=== PATIENT | female | born 1960 | race Caucasian/White ===

== ENCOUNTER 2023-11-08 08:30 | Emergency (ER) | payer MEDICARE, SELFPAY ==
[2023-11-08 08:30] VITALS: BMI 38.9
[2023-11-08 08:38] VITALS: BP 152/90
--- NOTE | 2023-11-08 10:03 | ED.GENMED ---
History of Present Illness
General
Chief Complaint: Breathing Problem
Source: patient
Exam Limitations: none
Time Seen by Provider: 11/08/23 09:33
Travel History
Have you had any contact with someone who has COVID-19?: Yes
Comment: 2 weeks ago
Do you have any symptoms of coronavirus? Fever > 100 degrees, chills, cough, shortness of breath, sore throat, loss of taste or smell, muscle aches, or headache?: No
History of Present Illness
History of Present Illness:
63-year-old female presents with fatigue, occasional shortness of breath. She had a knee replacement about 4 weeks ago. She has a history of aortic valve replacement and is on Coumadin. She has been having difficulty controlling her INR. It has
been reading high lately and they have been decreasing the doses of her Coumadin. She was told to come and get a recheck of her INR as the value she has been going off of was a home test kit. No fever. She did recently get over COVID. No
vomiting. No chest pain.
Past History
Past History
ED Past Medical History: Negative HTN
Social History
Tobacco: Non-smoker
Alcohol: Occasional
Drug: None
Personal: Other
Living: with family
Employment: Employed
Family History
Family History: Other
Phy Exam
Physical Exam
Physical Exam:
General: Well-appearing female no acute respiratory distress
HEENT: Normocephalic atraumatic
Heart: Regular rate and rhythm no murmurs
Lungs: Clear to auscultation bilaterally no wheezing
Abdomen: Soft nontender nondistended no guarding or rebound normal bowel sounds
Extremities: No cyanosis or edema
Skin: Warm no rash
Scores
Heart Failure Risk
Heart Failure Risk Score: Not Applicable
Course
Orders/Labs/Results
Orders:
Orders
11/08/23 08:42
Electrocardiogram (*1) Urgent
Reason for Study: Shortness of Breath
11/08/23 08:43
EKG- Treatment ONCE
11/08/23 10:29
Complete Blood Count/With Diff Urgent
Comprehensive Metabolic Panel Urgent
Prothrombin Time Urgent
11/08/23 10:54
CR Chest - 2 Views Urgent
Comment:
Reason For Exam: sob
Abnormal Lab Results
11/08/23
10:29
RBC 4.11 L 10^6/uL
(4.20-5.40)
Hct 36.1 L %
(37.0-47.0)
Monocytes % 10.2 H %
(1.7-9.3)
Eosinophils % 7.0 H %
(0-6)
PT 43.9 H Sec
(11.4-14.6)
Glucose 111 H mg/dl
(70-99)
AST 49 H U/L
(14-36)
Total Protein 8.8 H g/dl
(6.3-8.2)
11/08/23 10:29
11/08/23 10:29
Vital Signs
Initial and Last Documented VS:
Initial Vital Signs
Temp Pulse Resp BP Pulse Ox
98.4 F 84 16 152/90 98
11/08/23 08:38 11/08/23 08:38 11/08/23 08:38 11/08/23 08:38 11/08/23 08:38
Last Documented Vital Signs
Temp Pulse Resp BP Pulse Ox
98.4 F 87 16 162/87 98
11/08/23 08:38 11/08/23 10:35 11/08/23 10:35 11/08/23 10:35 11/08/23 10:35
MDM/Problems Addressed
Differential Diagnosis Includes:
Vague symptoms of fatigue and loose stool and shortness of breath. Recent COVID infection. Question INR. Will check labs
*Critical Care Note
Total Time (30-74mins, 75-104mins- exclusive of procedures): Not Applicable
Update Note
Update Note:
INR 4.63. Chest x-ray without acute finding. Stable. Patient reassured. Recommend she follow-up with her cardiology team for further recommendations regarding her Coumadin dosing
ED Attending Note
-
Portions of this chart may have been created with voice recognition software.� Occasional wrong word or��sound alike� substitutions may have occurred due to the inherent limitations of voice recognition software.
Discharge Plan
Departure
Patient Disposition: Home (Routine Discharge)
Date of Disposition: 11/08/23
Time of Disposition: 12:05
Patient with high blood pressure during this ER visit?: No
Discharge Problem:
Supratherapeutic INR
Instructions: Shortness of Breath (Dyspnea) (DC)
Prescriptions:
No Action
aspirin 81 MG tablet,delayed release (DR/EC)
81 mg PO HS
metoprolol tartrate 25 MG tablet
25 mg PO BID Qty: 0 0RF
amoxicillin 500 mg Capsule
2,000 mg PO PRN PRN (Reason: 30-60min before dental procedure)
methadone 10 mg Tablet
15 mg PO BID
dextroamphetamine-amphetamine [Adderall] 30 mg Tablet
30 mg PO DAILY
losartan 25 mg Tablet
50 mg PO DAILY
duloxetine 20 mg Capsule,Delayed Release(Dr/Ec)
20 mg PO DAILY
pregabalin 75 mg Capsule
75 mg PO BID
Gammaplex (with sorbitol) 5 % Solution
1 ml IV DIRECTED
Praluent Pen 150 mg/mL Pen Injector
150 mg SC Q14D
ezetimibe [Zetia] 10 mg Tablet
10 mg PO DAILY
Vraylar 1.5 mg Capsule
1.5 mg PO DAILY
mupirocin 2 % ointment
1 applic topical BID Qty: 1 0RF
Patient Comments:
started traetment 10/10/23 and was taking BID last took at home 10/13/23 in am
warfarin 5 mg Tablet
2.5 - 5 mg PO HS Qty: 0 0RF
Patient Comments:
pt tests self 2x week
Rx Instructions:
take 5 mg nightly, then as advised after INR -per cardiology
sennosides [Senokot] 8.6 mg tablet
17.2 mg PO BID Qty: 2 0RF
prednisone 10 mg tablet
40 mg PO TAPER Qty: 20 0RF
Rx Instructions:
4 TABS X 2 DAYS, 3 TABS X 2 DAYS, 2 TABS X 2 DAYS, 1 TAB X 2 DAYS, THEN STOP
magnesium hydroxide [Milk of Magnesia] 400 mg/5 mL suspension
30 ml PO HS PRN (Reason: Constipation) Qty: 1 0RF
docusate sodium [Colace] 100 mg capsule
100 mg PO BID Qty: 1 0RF
diazepam [Valium] 5 mg tablet
5 mg PO BID Qty: 15 0RF
Rx Instructions:
bid x 5 days, then nightly, then stop
hydrocodone-acetaminophen 7.5-325 mg tablet
1 tab PO Q6HPRN PRN (Reason: moderate-severe pain) Qty: 30 0RF
Rx Instructions:
Dx TKA
Ongoing therapy
cefadroxil 500 mg capsule
500 mg PO BID Qty: 14 0RF
Rx Instructions:
*Take w/ food
*Take w/ probiotic
*POST-OP USE
Saccharomyces boulardii [Florastor] 250 mg capsule
250 mg PO BID Qty: 1 0RF
Referrals:
Mo Schilling MD [Family Provider] -
Activity Restrictions/Additional Instructions:
Please follow-up with your cardiology team for further recommendation regarding your Coumadin doses. Return if worse otherwise
Interventions
Interventions:
*Risk Screen - Suicide Last Done: 11/08/23 10:34
*General Assessment Last Done: 11/08/23 10:34
*Neglect/Abuse Screening Last Done: 11/08/23 10:34
ED- Fall Risk Assessment Last Done: 11/08/23 10:34
*ED COVID-19 Vaccine History Last Done: 11/08/23 08:38
ED- Cardiac Assessment Last Done: 11/08/23 10:34
ED- Pulmonary Assessment Last Done: 11/08/23 10:34
[2023-11-08 10:35] VITALS: BP 162/87
[2023-11-08 10:40] LABS: % Basophils 1.1 % (0-2); % Immature Granulocytes 0.2 % (0-0.5); % Lymphocytes 30.1 % (20.5-51.1); % Monocytes 10.2 % (1.7-9.3); % Neutrophils 51.4 % (42.2-75.2); Absolute Basophils 0.1 10^3/uL (0-0.2); Absolute Eosinophils 0.4 10^3/uL (0-0.7); Absolute Lymphocytes 1.7 10^3/uL (1.2-3.4); Absolute Monocytes 0.6 10^3/uL (0.1-0.6); Absolute Neutrophils 2.9 10^3/uL (1.4-6.5); Hematocrit 36.1 % (37.0-47.0); Hemoglobin 12.3 g/dL (12.0-16.0); Mean Corp Hgb Conc. 34.1 g/dL (33.0-37.0); Mean Corpuscular Hgb 29.9 pg (27.0-31.0); Mean Corpuscular Volume 87.8 fL (81.0-99.0); Mean Platelet Volume 9.4 fL (7.4-10.4); Nucleated Red Blood Cells % 0 %; Platelet Count 368 10^3/uL (130-400); Red Blood Cell Count 4.11 10^6/uL (4.20-5.40); Red Cell Dist. Width 13.5 % (11.5-14.5); White Blood Cell Count 5.7 10^3/uL (4.8-10.8)
[2023-11-08 10:49] LABS: INR 4.63; PT 43.9 Sec (11.4-14.6)
[2023-11-08 11:00] LABS: ALT (SGPT) 34 U/L (0-35); AST (SGOT) 49 U/L (14-36); Albumin 3.8 g/dl (3.5-5.0); Alkaline Phosphatase 96 U/L (38-126); Blood Urea Nitrogen 15 mg/dl (7-17); Calcium 9.1 mg/dl (8.4-10.2); Carbon Dioxide 27 mmol/L (22-30); Chloride 101 mmol/L (98-107); Estimated Creatinine Clearance 91 ml/min; Glucose 111 mg/dl (70-99); Potassium 3.8 mmol/L (3.5-5.1); Sodium 138 mmol/L (135-145); Total Protein 8.8 g/dl (6.3-8.2); eGFR > 60.00
== END 2023-11-08 12:47 | disposition home or self-care (01) ==
LOC: EMR 08:30
PROVIDERS: Physician Assistant; EMERGENCY PHYSICIAN Emergency Medicine; FAMILY PHYSICIAN Family Medicine
DX: R79.1 Abnormal coagulation profile (principal); Z79.01 Long term (current) use of anticoagulants; Z95.2 Presence of prosthetic heart valve
CPT/HCPCS: 99283; 71046; 80053; 85025; 85610; 93005

== ENCOUNTER 2024-04-19 11:59 | Day surgery (SDC) | payer MEDICARE, SELFPAY ==
--- NOTE | 2024-01-07 09:15 | CM ---
Addendum entered by Dee Dee Chawla 03/22/24 12:37:
Surgery date was changed to 04/19/24.
Original Note:
Patient is scheduled for an elective L TKR on 02/09/24. Spoke with patient prior to surgery via telephone. Patient had a R TKR ay on 10/13/23. Reintroduced role of Orthopedic Navigator. Patient reports that she lives alone in a one story home.
There are four steps to enter and then one step from the kitchen and living room to her bedroom and bathroom. She currently functions independently. She has a cane and rolling walker. She had VN services through VN after her prior TKR. PCP is
Mo Schilling.
Discussed orthopedic program and post surgical plans. Reviewed anticipated length of stay and that goal is for her to return home at discharge. Also reviewed outpatient PT. Patient is in agreement with tentative plan but will not have transportation
for outpatient PT and will need services. She will have a friend stay with her for a week when she goes home.
Patient does not need to complete online education since she recently had a TKR.
Plan: Orthopedic Navigator will remain available to assist with the care of patient and will reassess discharge needs after surgery.
--- NOTE | 2024-01-19 10:54 | HPS.HSE ---
Family Physician
-
Family Physician: Mo Schilling
Chief Complaint
-
Advanced primary osteoarthritis of the left knee.
History of Present Illness
The patient is a 63-year-old female presenting today for advanced primary osteoarthritis of the left knee. The patient previously underwent an uncomplicated right total knee arthroplasty with Dr. Gab Mcclelland in September 2023. She
returns to [facility] today with complaints of significant left knee pain associated with her osteoarthritis. She notes that her current left knee pain is greatly interfering with her activities of daily living and is overall impacting her
quality of life. She has tried and failed multiple conservative treatment measures in the past for her left knee pain. These conservative treatment measures include activity modification, self directed therapeutic exercises, physical therapy,
medical management with Tylenol, Pregabalin, and Methadone, and the application of ice and/or heat. Recent x-ray findings of the left knee confirmed end stage [id number] osteoarthritis. She was determined to be in need of a left total knee
arthroplasty. She denies any current complaints today such as chest pain, shortness of breath, palpitations, nausea, vomiting, diarrhea, lightheadedness, dizziness, cough, sore throat, or fever.
Medical History
Past Medical History
Past Medical History: Reports Other
Additional Past Medical History:
1. Osteoarthritis, status post right total knee arthroplasty, 09/2023, by Dr. Gab Mcclelland.
2. Hypertension.
3. Hyperlipidemia.
4. Coronary artery disease, status post CABG x1 2014.
5. Severe aortic stenosis, status post mechanical AVR 2014; on chronic Warfarin.
6. Migraines.
7. Small fiber neuropathy, on monthly intravenous immunoglobulin.
8. Restless leg syndrome.
9. Lumbar degenerative disc disease.
10. Chronic pain syndrome, on Methadone.
11. ADHD.
12. Depression.
13. Anxiety.
14. Obesity, BMI 38.6.
Past Surgical History: Reports Other
Additional Past Surgical History:
1. Right total knee arthroplasty, 09/2023, by Dr. Gab Mcclelland.
2. Multiple bilateral knee arthroscopies.
3. Left thumb surgery.
4. Lumbar laminectomy.
5. Mechanical AVR.
6. CABG x1.
Social History
Tobacco: Non-smoker
Alcohol: Other (Rare. )
Living: Alone (in a 1 story home. She reports a friend will be helping her for the first few days after surgery. )
Family History
Family History: Not pertinent
Allergies / Home Medications
Allergy/Medication List:
Home medications:
1. Repatha 140 mg subcutaneous every 2 weeks.
2. Aspirin 81 mg p.o. at bedtime.
3. Amoxicillin 2000 mg p.o. prior to dental procedure.
4. Vraylar 1.5 mg p.o. daily.
5. Adderall 30 mg p.o. daily.
6. Duloxetine 20 mg p.o. daily.
7. Zetia 10 mg p.o. daily.
8. Immunoglobulin 1 mL intravenous as advised.
9. Losartan 50 mg p.o. daily.
10. Methadone 15 mg p.o. twice a day.
11. Metoprolol tartrate 25 mg p.o. twice a day.
12. Prednisone 5 mg p.o. daily as needed.
13. Lyrica 75 mg p.o. twice a day.
14. Warfarin 2.5 to 5 mg p.o. at bedtime.
15. Colace 100 mg p.o. daily as needed.
Allergies: Codeine and adhesive.
Review of Systems
-
A 12 point ROS was completed and negative except as noted: Yes
Physical Exam
Vital Signs
Blood pressure 132/59. Heart rate 70. Respirations 18. Pulse ox 96%.
Height 5 feet, 7 inches. Weight 111.9 kg. BMI 38.6.
Physical Exam
General: Well Developed, Well Nourished and No Apparent Distress
HEENT: NormoCephalic, Moist mucous membranes, Atraumatic and PERRLA
Respiratory: Clear
Cardiac: Regular Rhythm
GI: Soft, Non Tender, Non Distended and Other (Obese. )
Musculoskeletal: Other (Left knee: varus deformity noted. Trace effusion. Medial joint line tenderness. Mild lateral joint line tenderness. Range of motion 20-120 degrees. Slight laxity on valgus stress. Calf is soft, non-tender. )
Skin: Warm and Dry
Neuro: AO x 3 and Nonfocal/grossly intact
Laboratory Results
-
DIAGNOSTIC STUDIES as of 01/19/2024: White blood cell count 7.5. Hemoglobin 14.4. Platelet count 303,000. Sodium 136. Potassium 4.5. BUN 20. Creatinine 0.9. Glucose 97. Hemoglobin A1c 5.6. Calcium 9.2. AST 33. ALT 23. Albumin 4.2. MRSA screen
negative.
EKG provided by Cardiology.
Echocardiogram 07/23/2023: Normal left ventricular size and systolic function. LV ejection fraction is 65-70%. Normally functioning mechanical, prosthetic aortic valve. No significant change since the prior study of 2019.
Nuclear stress test 11/12/2019: Negative EKG for ischemia. Normal perfusion imaging. The ejection fraction is 67%. This is a moderate risk study due to limited functional capacity.
Impression/Plan
-
CLEARANCES:
1. Primary medical, Dr. Mo Schilling, cleared.
Primary medical phone number: [phone].
2. Cardiology, Dr. Soren Villasenor, cleared.
3. Dental pending.
IMPRESSION/PLAN:
1. Advanced primary osteoarthritis of the left knee in need of a left total knee arthroplasty with Dr. Gab Mcclelland on 02/09/2024. The benefits and risks have been discussed with the patient. These risks are understood and she wishes to proceed.
2. Deep vein thrombosis prophylaxis: Warfarin and bilateral venous foot pumps. The patient was made aware to hold her Warfarin 5 days prior to her procedure. Lovenox bridging was discussed with Cardiology prior to her right total knee arthroplasty
in September 2023. Bridging will not be required as the patient does not have an underlying arrhythmia. She is also noted to have a normal ventricle. We will resume her Warfarin the evening of surgery as long as she is hemodynamically stable. She will
continue her baby Aspirin while Warfarin is discontinued pre-operatively and she will continue this uninterrupted post-operatively. She will be placed on lead application architect.
3. Chronic pain syndrome: The patient will continue her home Methadone, Lyrica, and Duloxetine. We will include [place] 7.5 mg, 1-2 tablets p.o. every 4 hours as needed for severe breakthrough pain. We will also include a Prednisone taper and Valium 5
mg p.o. twice a day as needed for muscle spasms post-procedure. This medication regimen reportedly worked well after her prior right total knee arthroplasty.
The patient's surgery will need to be postponed due to needing 4 dental extractions prior to her procedure. She has been rescheduled from 02/09/2024 to 04/19/2024.
[2024-01-19 13:38] VITALS: BMI 38.7
[2024-01-19 14:19] VITALS: BMI 38.7
[2024-01-19 14:39] LABS: Hematocrit 43.7 % (37.0-47.0); Hemoglobin 14.4 g/dL (12.0-16.0); Mean Corpuscular Hgb 28.1 pg (27.0-31.0); Mean Corpuscular Volume 85.4 fL (81.0-99.0); Mean Platelet Volume 10.8 fL (7.4-10.4); Platelet Count 303 10^3/uL (130-400); Red Blood Cell Count 5.12 10^6/uL (4.20-5.40); Red Cell Dist. Width 12.7 % (11.5-14.5); White Blood Cell Count 7.5 10^3/uL (4.8-10.8)
[2024-01-19 14:52] LABS: ALT (SGPT) 23 U/L (0-35); AST (SGOT) 33 U/L (14-36); Albumin 4.2 g/dl (3.5-5.0); Alkaline Phosphatase 97 U/L (38-126); Blood Urea Nitrogen 20 mg/dl (7-17); Calcium 9.2 mg/dl (8.4-10.2); Carbon Dioxide 29 mmol/L (22-30); Chloride 101 mmol/L (98-107); Estimated Creatinine Clearance 80 ml/min; Glucose 97 mg/dl (70-99); Potassium 4.5 mmol/L (3.5-5.1); Sodium 136 mmol/L (135-145); Total Bilirubin 0.8 mg/dl (0.2-1.3); Total Protein 7.9 g/dl (6.3-8.2); eGFR > 60.00
[2024-01-20 08:32] LABS: Glycohemoglobin (HgbA1c) 5.6 % (4.0-5.6)
[2024-04-06 12:51] VITALS: BMI 38.9
[2024-04-06 14:02] LABS: Hemoglobin 14.1 g/dL (12.0-16.0); Mean Corp Hgb Conc. 32.8 g/dL (33.0-37.0); Mean Corpuscular Hgb 28.6 pg (27.0-31.0); Mean Corpuscular Volume 87.2 fL (81.0-99.0); Mean Platelet Volume 10.6 fL (7.4-10.4); Platelet Count 286 10^3/uL (130-400); Red Blood Cell Count 4.93 10^6/uL (4.20-5.40); Red Cell Dist. Width 13.6 % (11.5-14.5); White Blood Cell Count 6.7 10^3/uL (4.8-10.8)
[2024-04-06 14:09] LABS: ALT (SGPT) 27 U/L (0-35); AST (SGOT) 37 U/L (14-36); Albumin 4.3 g/dl (3.5-5.0); Alkaline Phosphatase 101 U/L (38-126); Blood Urea Nitrogen 15 mg/dl (7-17); Calcium 9.3 mg/dl (8.4-10.2); Carbon Dioxide 31 mmol/L (22-30); Chloride 99 mmol/L (98-107); Estimated Creatinine Clearance 73 ml/min; Glucose 108 mg/dl (70-99); Potassium 5.1 mmol/L (3.5-5.1); Sodium 138 mmol/L (135-145); Total Bilirubin 0.8 mg/dl (0.2-1.3); Total Protein 7.9 g/dl (6.3-8.2); eGFR > 60.00
[2024-04-07 11:04] LABS: Glycohemoglobin (HgbA1c) 5.5 % (4.0-5.6)
[2024-04-19] VITALS (10 sets, daily range): BP systolic 101–144; BP diastolic 50–71; BMI 38.9
[2024-04-19] MEDS: CELEBREX 200 MG PO (09:39)
[2024-04-19] MEDS: TYLENOL 650 MG PO ×3 (09:39→19:47)
[2024-04-19 10:22] LABS: INR 1.02; PT 13.2 Sec (11.4-14.6)
[2024-04-19] MEDS: NORMOSOL-R 1000 IV ×2 (10:30→15:06)
--- NOTE | 2024-04-19 12:31 | W.DS.TRANS ---
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
-
Discharge Instructions:
Sleep Apnea Risk Intermediate
Discharge Diagnosis/Procedures L MALCOLM Mcclelland 04/19/24
Diet As tolerated
Activity With Walker
Driving Restrictions No driving
Bathing Restrictions OK to Shower
Blood Work INR Mondays and -results to Cardiology
Other Services PT,VN
Instructions:
Stand-Alone Forms:
Changes to Home Medications: Yes
Discharge Medications:
DC Medications w/original date entered in [employer]
aspirin 81 mg tablet,delayed release 81 mg PO HS Blood Clot Prevention/Tx 01/19/15
metoprolol tartrate 25 mg tablet 25 mg PO BID ##0 02/07/15
dextroamphetamine-amphetamine 30 mg tablet (Adderall) 30 mg PO DAILY 10/09/22
immune globulin,gamma(IgG) 5 %-apeg-feg-PmL 0 to 50 mcg/mL IV solution (Gammaplex (with sorbitol)) 1 ml IV DIRECTED Blood Product Derivative; Immune Globulin 10/09/22
methadone 10 mg tablet 15 mg PO BID Pain 10/09/22
pregabalin 75 mg capsule 75 mg PO BID Pain 10/09/22
cariprazine 1.5 mg capsule (Vraylar) 1.5 mg PO DAILY Mental Health/Anxiety 09/19/23
ezetimibe 10 mg tablet (Zetia) 10 mg PO DAILY High Cholesterol 09/19/23
evolocumab 140 mg/mL subcutaneous pen injector (Repatha SureClick) 140 mg SC Q2W 01/19/24
mupirocin 2 % topical ointment 1 applic intranasal BID #1 tube 01/19/24
acetaminophen 325 mg tablet (Tylenol) 650 mg PO QID PRN pain 04/16/24
dexamethasone 4 mg tablet 4 mg PO BID 04/16/24
duloxetine 30 mg capsule,delayed release 30 mg PO DAILY 04/16/24
losartan 50 mg tablet 50 mg PO DAILY 04/16/24
ondansetron HCl 4 mg tablet 4 mg PO Q6H PRN nausea 04/16/24
Saccharomyces boulardii 250 mg capsule (Florastor) 250 mg PO BID #1 cap 04/19/24
cefadroxil 500 mg capsule 500 mg PO BID infection prevention #10 caps 04/19/24
docusate sodium 100 mg capsule (Colace) 100 mg PO BID stool softner #1 cap 04/19/24
magnesium hydroxide 400 mg/5 mL oral suspension (Milk of Magnesia) 30 ml PO HS PRN Constipation #1 mL 04/19/24
oxycodone 5 mg tablet 5 mg PO Q6H PRN 1 tab moderate pain, 2 tabs severe pain #30 tabs 04/19/24
sennosides 8.6 mg tablet (Senokot) 17.2 mg (2 x 8.6 mg) PO BID laxative #2 tabs 04/19/24
warfarin 5 mg tablet 2.5 - 5 mg (0.5 - 1 x 5 mg) PO HS Blood Clot Prevention/Tx #0 tabs 04/19/24
Home Medication Changes
ondansetron HCl 4 mg tablet 4 mg PO Q6H PRN nausea 04/16/24�
Saccharomyces boulardii 250 mg capsule (Florastor) 250 mg PO BID #1 cap 04/19/24�
cefadroxil 500 mg capsule 500 mg PO BID infection prevention #10 caps 04/19/24�
oxycodone 5 mg tablet 5 mg PO Q6H PRN 1 tab moderate pain, 2 tabs severe pain #30 tabs 04/19/24�
Pending Results: No
[2024-04-19] MEDS: ROXICODONE 5 MG PO (14:59)
[2024-04-19 15:04] LABS: INR 1.04; PT 13.4 Sec (11.4-14.6)
--- NOTE | 2024-04-19 15:39 | PTCARENOTE ---
Patient received from PACU in bed; IVF infusing; Left knee aquacell with scant drainage; Patient with positive sensation to bilateral lower extremities; Bilateral pedal pulse +2; Patient awake and alert; Denies pain at this time; Denies nausea at
this time; Bed in lowest position, wheels locked; Call sebastian within reach; Assessment ongoing
[2024-04-19] MEDS: CYMBALTA DELAYED RELEASE 30 MG PO (16:22)
[2024-04-19] MEDS: NON-FORMULARY ITEM 1.5 MG PO (16:22)
[2024-04-19] MEDS: ZETIA 10 MG PO (16:23)
[2024-04-19] MEDS: ROXICODONE 10 MG PO ×2 (17:09→21:17)
[2024-04-19] MEDS: ANCEF 5 IV (18:11)
[2024-04-19] MEDS: LYRICA 75 MG PO (19:00)
[2024-04-19] MEDS: DOLOPHINE 15 MG PO (19:47)
[2024-04-19] MEDS: BACTROBAN 2% OINTMENT 1 APPLIC NASAL (19:48)
[2024-04-19] MEDS: VALIUM 5 MG PO (19:48)
[2024-04-19] MEDS: LOPRESSOR 25 MG PO (19:48)
[2024-04-19] MEDS: DECADRON 4 MG PO (19:48)
[2024-04-19] MEDS: ASPIR LOW (ENTERIC COATED) 81 MG PO (21:15)
[2024-04-19] MEDS: COUMADIN 5 MG PO (21:15)
[2024-04-20] MEDS: TYLENOL PO
[2024-04-20] MEDS: ROXICODONE 10 MG PO ×2 (02:43→07:22)
[2024-04-20] MEDS: TYLENOL 650 MG PO ×2 (02:43→07:13)
[2024-04-20] MEDS: ANCEF 5 IV (02:44)
[2024-04-20 03:38] VITALS: BP 113/53
[2024-04-20] MEDS: ADDERALL 30 MG PO (07:13)
[2024-04-20] MEDS: DOLOPHINE 15 MG PO (07:13)
[2024-04-20] MEDS: VALIUM 5 MG PO (07:13)
[2024-04-20] MEDS: LYRICA 75 MG PO (07:13)
[2024-04-20] MEDS: NON-FORMULARY ITEM 1.5 MG PO (07:14)
[2024-04-20] MEDS: CYMBALTA DELAYED RELEASE 30 MG PO (07:14)
[2024-04-20] MEDS: DECADRON 4 MG PO (07:14)
[2024-04-20] MEDS: ZETIA 10 MG PO (07:15)
[2024-04-20] MEDS: BACTROBAN 2% OINTMENT 1 APPLIC NASAL (07:15)
[2024-04-20] MEDS: LOPRESSOR 25 MG PO (07:16)
[2024-04-20] MEDS: COZAAR 25 MG PO (07:16)
[2024-04-20 07:19] LABS: INR 1.08
--- NOTE | 2024-04-20 08:22 | CM ---
Addendum entered by Dee Dee Chawla 04/20/24 10:56:
Patient did well in therapy. She has no concerns about going home.
Original Note:
Reviewed chart and held rounds with PT, OT and nursing. Patient admitted as planned for elective L TKR. Met with patient at bedside. Confirmed information previously obtained for assessment. Also discussed discharge plans. The plan is for patient to
return home at discharge. Her friend will be staying with her until Friday. Reviewed VN services including start of care (tentatively 04/21), services to be ordered (PT, SN) and frequency/duration of services. Options list provided and PAC data
reviewed. Patient selects VN.
Patient has a cane and rolling walker at home.
VN referral was completed and sent to [facility] through [facility] with request for start of care on 04/21. Confirmation received of their ability to accept case. counter clerk to fax discharge instructions to [facility] when complete.
Patient will use [facility] pharmacy if additional discharge prescriptions are needed.
[2024-04-20 09:15] VITALS: BP 155/67
[2024-04-20 10:37] VITALS: BP 141/61; PULSE 72; O2SAT 100
[2024-04-20 10:46] VITALS: BP 125/71
--- NOTE | 2024-04-20 11:05 | W.PN.ORTHO ---
Today's Communication / Plan
-
d/c
Assessment
.
Distal Motor Intact: Yes
Dressing:
Clean, dry and intact.
Assessment:
TCN-[id number]--+ Cefadroxil abx ppx
Plan
.
Surgery / Date: Juan Diego Mcclelland 04/19/24
DVT Prophylaxis: Coumadin
Activity:
Out of bed.
PT/OT
Discharge Plan: Home w/ VN
Subjective
.
.:
Patient resting comfortably.
Vital Signs and Labs
.
Vital Signs and Labs:
Lab Results
04/06/24 12:47
04/06/24 12:47
Temp Pulse Resp BP Pulse Ox
98.7 F 79 14 125/71 97
04/20/24 10:46 04/20/24 10:46 04/20/24 10:46 04/20/24 10:46 04/20/24 10:46
PT 14.0 Sec (11.4-14.6) 04/20/24 06:59
INR 1.08 04/20/24 06:59
Non-invasive Hgb result: 9.1
Physical Exam
-
HEENT: No pallor, cyanosis, or jaundice. Throat clear.
NECK: Supple. No JVD.
RESPIRATORY: Lungs clear to auscultation.
CVS: S1, S2 normal. RRR.� systolic click.
ABDOMEN: Soft, non-tender. No distension. BS+/normal.
EXTREMITIES: strength equal, no calf pain with palpation
MACHINE CLOTH MEASURER: AOx3. No focal deficits. broiler manager grossly intact
== END 2024-04-20 11:45 | disposition home or self-care (01) | DRG 470 ==
LOC: SDS 11:59
PROVIDERS: Physician Assistant Medical; ATTENDING PHYSICIAN Specialist; FAMILY PHYSICIAN Family Medicine
PROC: 0SRD0J9 Replacement of Left Knee Joint with Synthetic Substitute, Cemented, Open Approach (ICD-10-PCS; 2024-04-19)
DX: M17.12 Unilateral primary osteoarthritis, left knee (principal); I10 Essential (primary) hypertension; I25.10 Atherosclerotic heart disease of native coronary artery without angina pectoris; I35.0 Nonrheumatic aortic (valve) stenosis; E78.5 Hyperlipidemia, unspecified; G62.9 Polyneuropathy, unspecified; M51.36 Other intervertebral disc degeneration, lumbar region; G89.4 Chronic pain syndrome; G25.81 Restless legs syndrome; F90.9 Attention-deficit hyperactivity disorder, unspecified type; F32.A Depression, unspecified; F41.9 Anxiety disorder, unspecified; E66.9 Obesity, unspecified; Z68.38 Body mass index [BMI] 38.0-38.9, adult; Z79.01 Long term (current) use of anticoagulants; Z88.5 Allergy status to narcotic agent; Z95.2 Presence of prosthetic heart valve; Z79.891 Long term (current) use of opiate analgesic; Z96.651 Presence of right artificial knee joint; Z95.1 Presence of aortocoronary bypass graft; Z79.82 Long term (current) use of aspirin
CPT/HCPCS: 27447; 36415; 73560; 80053; 83036; 85027; 85610; 87070; 97110; 97116; 97162; 97166; 97530; C1713; C1776

== ENCOUNTER 2024-04-29 22:21 | Emergency (ER) | payer MEDICARE, SELFPAY ==
[2024-04-29 22:25] VITALS: BP 169/74
[2024-04-29 22:45] VITALS: BMI 34.7
[2024-04-29 22:49] VITALS: BP 153/66
[2024-04-29 23:00] VITALS: BP 144/79
[2024-04-29] MEDS: ROXICODONE 5 MG PO (23:10)
--- NOTE | 2024-04-29 23:17 | ED.GENMED ---
History of Present Illness
<BILL Mcclendon (Lenka) - Last Filed: 04/29/24 23:56>
General
Chief Complaint: Post Operative Problem(s)
Source: patient and other (friend)
Exam Limitations: none
Time Seen by Provider: 04/29/24 23:03
History of Present Illness
History of Present Illness:
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
sudden onset L knee pain, warmth, and swelling since 1929 t[place]enzel. Pt was standing at a countertop when she felt a sudden sharp pain in her L knee and was unable to stand. She limped to the couch and called for help. She reports the pain is 10/10,
localized to the L knee, with some radiation to the mid-calf. She is unable to bear weight or bend her knee. Earlier today she was able to walk around her house with her cane without concern. Her post-op course has been otherwise uncomplicated. She
endorses mild abdominal discomfort this evening during dinner, otherwise denies fevers, chills, myalgias, URI sx, chest pain, dyspnea, groin pain or swelling, calf cramping, new loss of sensation or numbness to the toes.
She recently completed a 5 day course of antibiotics on Friday (04/26).
She had no complications resulting from her R total knee replacement done 09/2023.
She reports compliance with her medications, she is on daily warfarin post-surgery.
Has appointment on Friday (05/03/24) with orthopedists to remove katie from L knee.
Past History
<BILL Mcclendon (Lenka) - Last Filed: 04/29/24 23:56>
Past History
ED Past Medical History: CAD; Negative HTN
ED Past Surgical History: Cardiac (CABG and AV repair (2015)) and Orthopedic (R total knee replacement (09/2023), L total knee replacement (04/19/24))
Social History
Tobacco: Non-smoker
Alcohol: Occasional
Drug: None
Personal: Other
Living: with family
Employment: Employed
Phy Exam
<BILL Mcclendon (Lenka) - Last Filed: 04/29/24 23:56>
General Physical Exam
General Presentation: moderate distress
General age: appears stated age
General Skin: warm, dry and other (diffuse ecchymosis to L leg (present since surgery on 04/19/24 per patient))
General Mental: anxious and tearful
General Hydration: appears well hydrated
Neurological Exam
Neurological Exam: alert and oriented x3
Musculoskeletal Exam
Musculoskeletal Exam: joint swelling (L knee swelling, tightness) and other (L knee warmth extending to mid-calf)
Skin Exam
Skin Exam: warmth (surrounding left knee, extending to L mid-calf) and other (diffuse ecchymosis over L leg (unchanged since surgery), katie from surgery without discharge, redness, swelling.)
Course
<BILL Mcclendon (Lenka) - Last Filed: 04/29/24 23:56>
Orders/Labs/Results
Orders:
Orders
04/29/24 23:03
Oxycodone [Roxicodone] 5 mg PO NOW STA
04/29/24 23:28
HYDROmorphone [Dilaudid] 1 mg IV NOW STA
Ondansetron Injectable [Zofran] 4 mg IV NOW STA
US Periph Venous LOWER Ext LT Urgent
Comment:
Reason For Exam: post ip swelling
04/29/24 23:29
CR Knee - Left 4 Or More View* Urgent
Reason For Exam: post op pain
04/29/24 23:52
Complete Blood Count/With Diff Urgent
Comprehensive Metabolic Panel Urgent
Prothrombin Time Urgent
04/30/24 01:35
Oxycodone [Roxicodone] 5 mg PO NOW STA
Abnormal Lab Results
04/29/24
23:52
WBC 15.2 H 10^3/uL
(4.8-10.8)
RBC 3.93 L 10^6/uL
(4.20-5.40)
Hgb 11.6 L g/dL
(12.0-16.0)
Hct 34.8 L %
(37.0-47.0)
Abs Immat Gran (auto) 0.3 H 10^3/uL
(0-0.05)
Absolute Neuts (auto) 12.4 H 10^3/uL
(1.4-6.5)
Absolute Monos (auto) 0.8 H 10^3/uL
(0.1-0.6)
Immature Gran % 2.0 H %
(0-0.5)
Neutrophils % 81.3 H %
(42.2-75.2)
Lymphocytes % 10.0 L %
(20.5-51.1)
PT 26.6 H Sec
(11.4-14.6)
Sodium 134 L mmol/L
(135-145)
BUN 21 H mg/dl
(7-17)
Creatinine 1.1 H mg/dL
(0.6-1.0)
Glucose 126 H mg/dl
(70-99)
Total Protein 8.9 H g/dl
(6.3-8.2)
04/29/24 23:52
04/29/24 23:52
Vital Signs
Initial and Last Documented VS:
Initial Vital Signs
Temp Pulse Resp BP Pulse Ox
98.3 F 76 20 169/74 98
04/29/24 22:25 04/29/24 22:25 04/29/24 22:25 04/29/24 22:25 04/29/24 22:25
Last Documented Vital Signs
Temp Pulse Resp BP Pulse Ox
98.3 F 76 13 162/79 98
04/29/24 22:25 04/30/24 00:00 04/30/24 00:00 04/30/24 00:00 04/30/24 00:00
<Gab Jordan, DO - Last Filed: 04/30/24 01:37>
Orders/Labs/Results
Orders:
Orders
04/29/24 23:03
Oxycodone [Roxicodone] 5 mg PO NOW STA
04/29/24 23:28
HYDROmorphone [Dilaudid] 1 mg IV NOW STA
Ondansetron Injectable [Zofran] 4 mg IV NOW STA
US Periph Venous LOWER Ext LT Urgent
Comment:
Reason For Exam: post ip swelling
04/29/24 23:29
CR Knee - Left 4 Or More View* Urgent
Reason For Exam: post op pain
04/29/24 23:52
Complete Blood Count/With Diff Urgent
Comprehensive Metabolic Panel Urgent
Prothrombin Time Urgent
04/30/24 01:35
Oxycodone [Roxicodone] 5 mg PO NOW STA
Abnormal Lab Results
04/29/24
23:52
WBC 15.2 H 10^3/uL
(4.8-10.8)
RBC 3.93 L 10^6/uL
(4.20-5.40)
Hgb 11.6 L g/dL
(12.0-16.0)
Hct 34.8 L %
(37.0-47.0)
Abs Immat Gran (auto) 0.3 H 10^3/uL
(0-0.05)
Absolute Neuts (auto) 12.4 H 10^3/uL
(1.4-6.5)
Absolute Monos (auto) 0.8 H 10^3/uL
(0.1-0.6)
Immature Gran % 2.0 H %
(0-0.5)
Neutrophils % 81.3 H %
(42.2-75.2)
Lymphocytes % 10.0 L %
(20.5-51.1)
PT 26.6 H Sec
(11.4-14.6)
Sodium 134 L mmol/L
(135-145)
BUN 21 H mg/dl
(7-17)
Creatinine 1.1 H mg/dL
(0.6-1.0)
Glucose 126 H mg/dl
(70-99)
Total Protein 8.9 H g/dl
(6.3-8.2)
04/29/24 23:52
04/29/24 23:52
Vital Signs
Initial and Last Documented VS:
Initial Vital Signs
Temp Pulse Resp BP Pulse Ox
98.3 F 76 20 169/74 98
04/29/24 22:25 04/29/24 22:25 04/29/24 22:25 04/29/24 22:25 04/29/24 22:25
Last Documented Vital Signs
Temp Pulse Resp BP Pulse Ox
98.3 F 76 13 162/79 98
04/29/24 22:25 04/30/24 00:00 04/30/24 00:00 04/30/24 00:00 04/30/24 00:00
<BILL Mcclendon (Lenka) - Last Filed: 04/29/24 23:56>
MDM/Problems Addressed
Differential Diagnosis Includes:
Pt is a 63yo female with PMHx of B/L total knee replacements (R knee 09/2023, L knee 04/19/2024) presenting to the ED with sudden onset L knee pain, warmth, and swelling since 1929 [place]. Pt was standing at a countertop when she felt a sudden sharp
10/10 pain in her L knee with radiation to the mid-calf and was unable to stand. She is unable to bear weight or bend her knee. Earlier today she was able to walk around her house with her cane without concern. Her post-op course has been otherwise
uncomplicated. She denies fevers, chills, myalgias, URI sx, chest pain, dyspnea, groin pain or swelling, calf cramping, new loss of sensation or numbness to the toes.
She recently completed a 5 day course of antibiotics on Friday (04/26).
She had no complications resulting from her R total knee replacement done 09/2023.
She reports compliance with her medications, she is on daily warfarin post-surgery.
DDx: hardware displacement, knee effusion, septic arthritis, post-op pain, DVT
Due to the recent course of antibiotics and the nature of sudden onset of symptoms originating from the knee, septic arthritis is of lesser concern. Patient has been mobile recently with PT, walking around the house with a cane, and taking warfarin,
so a DVT is less likely.
Plan to order L knee XR, doppler U/S for possible clot, and begin IV for pain control. Possible ortho consult.
Postop pain, moving of the hardware, effusion, doubt cellulitis
<Gab Jordan DO - Last Filed: 04/30/24 01:37>
MDM/Problems Addressed
Differential Diagnosis Includes:
Postop pain, moving of the hardware, effusion, doubt cellulitis
MDM/Problems Addressed:
Knee pain
Chronic conditions affecting care:
Chronic pain syndrome
<BILL Mcclendon (Lenka) - Last Filed: 04/29/24 23:56>
*Critical Care Note
Total Time (30-74mins, 75-104mins- exclusive of procedures): Not Applicable
<Gab Jordan DO - Last Filed: 04/30/24 01:37>
*Radiology
Radiology exam reviewed: other (verbal no dvt)
*Pulse Oximetry
Patient hypoxic: no
*Assistant Football Coach Interpretation
Rate: Assistant Football Coach- N/A
<Gab Jordan DO - Last Filed: 04/30/24 01:37>
Update Note
Update Note:
Update workup noted white count of uncertain significance no DVT hardware looks fine, patient now able to ambulate will have her follow-up with her outpatient orthopedist
ED Attending Note
<BILL Mcclendon (Lenka) - Last Filed: 04/29/24 23:56>
-
Portions of this chart may have been created with voice recognition software.� Occasional wrong word or��sound alike� substitutions may have occurred due to the inherent limitations of voice recognition software.
<Gab Jordan DO - Last Filed: 04/30/24 01:37>
ED Attending Note
Patient seen and examined by attending physician: Yes
ED Attending Note:
Seen with student examined independently 63-year-old female postop from left total knee replacement recovering well katie intact acute onset of knee pain nausea calf swelling some ecchymosis on the medial she is on warfarin no trauma no fever no
cellulitic changes, she states most of her pain is over the knee appears to be a small effusion perhaps, try to get her comfortable check labs and x-ray
Discharge Plan
Departure
Patient Disposition: Home (Routine Discharge)
Date of Disposition: 04/30/24
Time of Disposition: 01:36
Patient with high blood pressure during this ER visit?: No
Condition: Good
Covid-19: Not Applicable
Discharge Problem:
Post-operative pain
Instructions: Postoperative Pain (DC)
Prescriptions:
No Action
aspirin 81 MG tablet,delayed release (DR/EC)
81 mg PO HS
metoprolol tartrate 25 MG tablet
25 mg PO BID Qty: 0 0RF
methadone 10 mg Tablet
15 mg PO BID
dextroamphetamine-amphetamine [Adderall] 30 mg Tablet
30 mg PO DAILY
pregabalin 75 mg Capsule
75 mg PO BID
Gammaplex (with sorbitol) 5 % Solution
1 ml IV DIRECTED
Rx Instructions:
once a month for 4 days
ezetimibe [Zetia] 10 mg Tablet
10 mg PO DAILY
Vraylar 1.5 mg Capsule
1.5 mg PO DAILY
mupirocin 2 % ointment
1 applic intranasal BID Qty: 1 0RF
Repatha SureClick 140 mg/mL Pen Injector
140 mg SC Q2W
losartan 50 mg Tablet
50 mg PO DAILY
duloxetine 30 mg Capsule,Delayed Release(Dr/Ec)
30 mg PO DAILY
acetaminophen [Tylenol] 325 mg Tablet
650 mg PO QID PRN (Reason: pain)
ondansetron HCl 4 mg Tablet
4 mg PO Q6H PRN (Reason: nausea)
Rx Instructions:
post op
dexamethasone 4 mg Tablet
4 mg PO BID
sennosides [Senokot] 8.6 mg tablet
17.2 mg PO BID Qty: 2 0RF
magnesium hydroxide [Milk of Magnesia] 400 mg/5 mL suspension
30 ml PO HS PRN (Reason: Constipation) Qty: 1 0RF
docusate sodium [Colace] 100 mg capsule
100 mg PO BID Qty: 1 0RF
Saccharomyces boulardii [Florastor] 250 mg capsule
250 mg PO BID Qty: 1 0RF
cefadroxil 500 mg Capsule
500 mg PO BID Qty: 10 0RF
Rx Instructions:
post op
warfarin 5 mg Tablet
2.5 - 5 mg PO HS Qty: 0 0RF
Patient Comments:
pt tests self 2x week
Rx Instructions:
take 5 mg nightly, then as advised after INR -per cardiology
oxycodone 5 mg tablet
5 mg PO Q6H PRN (Reason: 1 tab moderate pain, 2 tabs severe pain) Qty: 30 0RF
Rx Instructions:
Ongoing therapy
fluconazole [Diflucan] 100 mg tablet
100 mg PO DAILY Qty: 2 0RF
Rx Instructions:
take 2 tabs day after last Cefadroxil dose
Referrals:
UNKNOWN - PT DOES,NOT KNOW [Family Provider] -
Activity Restrictions/Additional Instructions:
Take your medication as prescribed call Dr. Mcclelland tomorrow to discuss your symptoms
Interventions
Interventions:
*Risk Screen - Suicide Last Done: 04/29/24 22:25
*General Assessment Last Done: 04/29/24 22:25
*Neglect/Abuse Screening Last Done: 04/29/24 22:25
ED- Fall Risk Assessment Last Done: 04/29/24 22:25
*ED COVID-19 Vaccine History Last Done: 04/29/24 22:25
ED-Musculoskeletal Assessment Last Done: 04/29/24 22:45
ED-Peripheral Vascular Assessment Last Done: 04/29/24 22:45
ED-Skin Assessment Last Done: 04/29/24 22:45
Discharge Date and Time
Print Language: YI
[2024-04-29] MEDS: ZOFRAN 4 MG IV (23:52)
[2024-04-29] MEDS: DILAUDID 1 MG IV (23:53)
[2024-04-30] VITALS: BP 162/79
[2024-04-30 00:28] LABS: ALT (SGPT) 27 U/L (0-35); AST (SGOT) 33 U/L (14-36); Alkaline Phosphatase 110 U/L (38-126); Blood Urea Nitrogen 21 mg/dl (7-17); Calcium 8.5 mg/dl (8.4-10.2); Carbon Dioxide 28 mmol/L (22-30); Chloride 100 mmol/L (98-107); Estimated Creatinine Clearance 63 ml/min; Glucose 126 mg/dl (70-99); Potassium 4.7 mmol/L (3.5-5.1); Sodium 134 mmol/L (135-145); Total Bilirubin 1.2 mg/dl (0.2-1.3); Total Protein 8.9 g/dl (6.3-8.2); eGFR 55.76
[2024-04-30 00:31] LABS: % Basophils 0.5 % (0-2); % Eosinophils 0.8 % (0-6); % Monocytes 5.4 % (1.7-9.3); % Neutrophils 81.3 % (42.2-75.2); Absolute Basophils 0.1 10^3/uL (0-0.2); Absolute Eosinophils 0.1 10^3/uL (0-0.7); Absolute Immature Granulocytes 0.3 10^3/uL (0-0.05); Absolute Lymphocytes 1.5 10^3/uL (1.2-3.4); Absolute Monocytes 0.8 10^3/uL (0.1-0.6); Absolute Neutrophils 12.4 10^3/uL (1.4-6.5); Hematocrit 34.8 % (37.0-47.0); Hemoglobin 11.6 g/dL (12.0-16.0); Mean Corp Hgb Conc. 33.3 g/dL (33.0-37.0); Mean Corpuscular Hgb 29.5 pg (27.0-31.0); Mean Corpuscular Volume 88.5 fL (81.0-99.0); Mean Platelet Volume 10.2 fL (7.4-10.4); Nucleated Red Blood Cells % 0 %; Platelet Count 306 10^3/uL (130-400); Red Blood Cell Count 3.93 10^6/uL (4.20-5.40); Red Cell Dist. Width 13.9 % (11.5-14.5); White Blood Cell Count 15.2 10^3/uL (4.8-10.8)
[2024-04-30 00:52] LABS: INR 2.42; PT 26.6 Sec (11.4-14.6)
[2024-04-30 00:53] VITALS: BP 149/70
[2024-04-30 01:00] VITALS: BP 134/54
[2024-04-30] MEDS: ROXICODONE 5 MG PO (01:58)
== END 2024-04-30 02:06 | disposition home or self-care (01) ==
LOC: EMR 22:21
PROVIDERS: EMERGENCY PHYSICIAN Emergency Medicine
DX: G89.18 Other acute postprocedural pain (principal); R22.42 Localized swelling, mass and lump, left lower limb; I10 Essential (primary) hypertension; E78.00 Pure hypercholesterolemia, unspecified; I25.10 Atherosclerotic heart disease of native coronary artery without angina pectoris; Z95.1 Presence of aortocoronary bypass graft; Z96.653 Presence of artificial knee joint, bilateral
CPT/HCPCS: 99284; 96374; 96375; 73564; 80053; 85025; 85610; 93971

== ENCOUNTER → 2024-08-03 12:37 | Outpatient (REF) | payer OTHER, SELFPAY | LOC: RAD 12:37 | PROVIDERS: ATTENDING PHYSICIAN Family Medicine | DX: R06.02 Shortness of breath (principal) | CPT/HCPCS: 71046 ==

== ENCOUNTER → 2025-07-29 12:39 | Outpatient (REF) | payer OTHER, SELFPAY | LOC: RCS 12:39 | PROVIDERS: ATTENDING PHYSICIAN Nurse Practitioner; FAMILY PHYSICIAN Family Medicine | DX: Z95.2 Presence of prosthetic heart valve (principal); I25.10 Atherosclerotic heart disease of native coronary artery without angina pectoris; E78.00 Pure hypercholesterolemia, unspecified | CPT/HCPCS: 93306; Q9950 ==